=== PATIENT | female | born 1960 | race Caucasian/White ===

== ENCOUNTER 2019-11-14 10:17 | Outpatient (CLI) | payer OTHER, SELFPAY ==
[2019-11-14 12:48] LABS: Vitamin D 25 Total 26.8 ng/ml (30-100)
== END 2019-11-14 10:37 ==
PROVIDERS: PCP Student in an Organized Health Care Education/Training Program; Visit Provider Student in an Organized Health Care Education/Training Program
DX: E55.9 Vitamin D deficiency, unspecified (principal)
CPT/HCPCS: 36415; 82306

== ENCOUNTER 2020-03-30 01:04 | Outpatient (CLI) | payer OTHER, SELFPAY ==
--- NOTE | 2020-03-30 11:30 | DI.MAMMO_ITS ---
EXAM: MG MAMMO SCREENING CLINICAL HISTORY: SCREENING Z12.39 TECHNIQUE: Bilateral full field digital CC and MLO mammographic images were obtained with 3D tomosyn thesis and utilizing computer aided detection (CAD). COMPARISON: Available for comparison. FINDINGS: Masses/Architectural Distortion: None seen. Microcalcifications: No suspicious pleomorphic-type are seen. Skin Thickening/Nipple Retraction: None. IMPRESSION: 1. No significant interval change with no specific features of malignancy noted. 2. Unless there is more urgent need, screening mammography is recommended, as per [employer] guidelines. BI-RADS Category 1 - Negative Breast Density - Category C - Heterogeneously dense The mammogram demonstrates the patient's breast tissue is dense. Dense breast tissue is very common a nd is not abnormal but dense breast tissue can make it harder to find cancer on a mammogram. Also, de nse breast tissue may increase their breast cancer risk. This information about the result of the [facility] mogram report was provided to the patient to raise their awareness. Use this report when you speak wi th the patient about their risks for breast cancer, which includes their family history. At that time , you may recommend for more screening tests (Ultrasound or MRI) as they might be useful based on the ir risk. A negative radiographic report should not delay biopsy if a dominant or clinically suspicious mass is present. Up to ten percent of cancers are not identified on mammography. A negative report may reinforce clinical impression. Adenosis and dense breasts may obscure an underlying neoplasm. False positive reports average 6 to 10%. Patient will receive a letter notifying them of these results.
== END 2020-03-30 01:24 ==
PROVIDERS: PCP Student in an Organized Health Care Education/Training Program; Visit Provider Student in an Organized Health Care Education/Training Program
DX: Z12.31 Encounter for screening mammogram for malignant neoplasm of breast (principal)
CPT/HCPCS: 77063; 77067

== ENCOUNTER 2021-01-15 03:14 | Outpatient (CLI) | payer OTHER, SELFPAY ==
--- NOTE | 2021-01-15 12:54 | DI.CTLCSR_ITS ---
EXAM: CT CHEST LUNG CANCER SCREEN CLINICAL HISTORY: Screening for lung cancer,FORMER SMOKER, Z87.891 TECHNIQUE: CT examination of the chest was performed utilizing low-dose lung cancer screening protoc ol. COMPARISON: No exams were available for comparison FINDINGS: Images obtained through the upper abdomen show unremarkable appearance of visualized portions of the liver and spleen. Visualized portions kidneys, adrenals, pancreas appear intact as well. Prior cho lecystectomy noted. There is no mediastinal or hilar adenopathy. Mediastinal vascular structures appear intact by noncon trast criteria. Coronary artery calcification noted. Tracheobronchial tree appears intact. No pleural effusion or pleural-based mass. The lungs are predominantly clear. There are a couple of tiny left apical intrapulmonary nodules, le ss than 3 millimeters mean diameter. IMPRESSION: Negative LDCT of the chest.Lung RADS Cat 2 - Benign Appearance / Behavior: Nodules with a very low li kelihood of becoming a clinically active cancer due to size or lack of growth Continue annual screening with LDCTin 12 months. RADIATION DOSE DELIVERED: LINK-TO-SR Total DLP 98.37mGy.cm Total DLP RADIATION OPTIMIZATION: All CT scans at this facility use at least one of these dose optimization te chniques: automated exposure control; mA and/or kV adjustment per patient size (includes targeted exa ms where dose is matched to clinical indication); or iterative reconstruction.
== END 2021-01-15 03:34 ==
PROVIDERS: PCP Student in an Organized Health Care Education/Training Program; Visit Provider Student in an Organized Health Care Education/Training Program
DX: Z87.891 Personal history of nicotine dependence (principal); R91.8 Other nonspecific abnormal finding of lung field
CPT/HCPCS: 71271

== ENCOUNTER 2021-03-22 03:57 | Outpatient (CLI) | payer OTHER, SELFPAY ==
[2021-03-22 11:00] LABS: Source Nasal/Nares
[2021-03-22 13:05] LABS: COVID-19 PCR Negative (Negative)
== END 2021-03-22 03:58 | disposition home or self-care (01) ==
LOC: LBO 03:58
PROVIDERS: PCP Student in an Organized Health Care Education/Training Program; Visit Provider Student in an Organized Health Care Education/Training Program
DX: Z20.822 Contact with and (suspected) exposure to COVID-19 (principal); Z01.818 Encounter for other preprocedural examination
CPT/HCPCS: 87635

== ENCOUNTER 2021-03-23 06:14 | Day surgery (SDC) | payer OTHER, SELFPAY ==
[2021-03-23 06:22] VITALS: BP 135/72; PULSE 79; RESP 20; TEMP 36.7; O2SAT 97
--- NOTE | 2021-03-23 06:23 | W.ANESPRE ---
General Info Date of Service Date Performed: 03/23/21 Height: 5 ft 3 in Weight: 98.43 kg Body Mass Index (BMI): 38.4 Surgical Procedure: Operation Date: 03/23/21 07:40 Proposed Procedures Side Surgeon p Wrist ECTR Right Ryan Sellers MD Meds Allergies and Home Medications Allergies Allergy/AdvReac Type Severity Reaction Status Date / Time tioconazole Allergy Severe RASH Verified 03/23/21 06:31 [From Monistat 1 (tioconazole)] morphine AdvReac Elevated bp Verified 03/23/21 06:31 Penicillins AdvReac Yeast Verified 03/23/21 06:31 Infections Home Medication Medication Instructions Recorded aspirin 81 mg tablet,delayed 81 mg PO DAILY 07/04/19 release cyanocobalamin (vitamin B-12) 1,000 mcg PO DAILY 07/04/19 1,000 mcg capsule magnesium 250 mg tablet 500 mg PO DAILY tab 11/14/19 citalopram 10 mg tablet 10 mg PO DAILY #90 tab 07/17/20 lisinopril 10 mg tablet 10 mg PO DAILY #90 tab 07/17/20 pravastatin 40 mg tablet 40 mg PO DAILY #90 tab 07/17/20 ascorbate calcium (vitamin C) 500 500 mg PO DAILY 01/01/21 mg tablet cholecalciferol (vitamin D3) 250 10,000 unit PO .Three times a week 01/01/21 mcg (10,000 unit) capsule cap glucosamine [id number] 1 tab PO .QD tab 01/01/21 500 mg-300 mg-400 mg tablet pyridoxine (vitamin B6) 100 mg 100 mg PO BID #60 tab 01/01/21 tablet Current Visit Medications: Current Medications Generic Name Dose Route Start Last Admin Trade Name Freq PRN Reason Stop Dose Admin Ringer's Solution 1,000 mls @ 80 mls/hr 03/23/21 06:00 IV 04/21/21 23:59 INFUSION ENZO Cefazolin Sodium/Dextrose 2 gm in 50 mls @ 100 mls/hr 03/23/21 06:00 Ancef Duplex IVPB 04/21/21 23:59 PREOP ENZO IV Miscellaneous Supplies 1 each 03/23/21 06:00 Iv Access IV 04/21/21 23:59 DIRECTED ENZO Sodium Chloride 0 ml 03/23/21 06:00 Normal Saline Flush 10 Ml Syr IV 04/21/21 23:59 PRN PRN Sodium Chloride 0 ml 03/23/21 06:00 Normal Saline 10 Ml Vial IJ 04/21/21 23:59 DIRECTED PRN Sterile Water 0 ml 03/23/21 06:00 Water,Injection,Sterile 10 Ml Vial IJ 04/21/21 23:59 DIRECTED PRN PFSH Active Problems Active Problems: Problem Status Onset Code Chronic fatigue R53.82 Numbness and tingling R20.0, R20.2 Bilateral carpal tunnel syndrome G56.03 Vitamin D deficiency E55.9 Vitamin B12 deficiency E53.8 Hyperglycemia R73.9 Mixed hyperlipidemia E78.2 Major depressive disorder F32.9 Essential hypertension I10 Diverticulitis K57.92 Medical History Medical History Bilateral carpal tunnel syndrome EMG/NCS 05/08/17 Chronic fatigue Diverticulitis 1998 Essential hypertension Goal 130/85 07/26/16 Former smoker quit 10/16/07 Hyperglycemia Major depressive disorder Mixed hyperlipidemia Vitamin B12 deficiency Vitamin D deficiency Surgical History Surgical History History of appendectomy History of cholecystectomy (05/14/16) History of hysterectomy (~2001) Hx of endoscopic retrograde cholangiopancreatography (06/22/16) with stent removal and balloon sweep and 05/15/16 Tobacco Smoking/Tobacco Use Status: Former Tobacco Use Tobacco: How many years used: 35 Alcohol Alcohol Intake: former Year quit: 2010 Substance Use Substance use: Never Substance use type: does not use Vital Signs and Lab Results Lab Results Blood Type / Crossmatch: No Data to Display Complete Blood Count: No Data to Display Complete Metabolic Panel: No Data to Display Liver Function Panel: No Data to Display Coagulation Panel: No Data to Display Cardiac Panel: No Data to Display Arterial Blood Gas: No Data to Display Venous Blood Gas: No Data to Display Pancreas Panel: No Data to Display Thyroid Panel: No Data to Display Infectious Disease: Coronavirus (COVID-19)(PCR) Negative (Negative) 03/22/21 08:52 03/22/21 Coronavirus 2019 Source Nasal/nares 03/22/21 08:52 03/22/21 Blood Cultures: No Data to Display Toxicology Panel: No Data to Display Anesthesia Assessment and Plan Anesthesia History Personal History: No History of Anesthesia Complications Family History: No Family History of Anesthesia Complications Exercise Tolerance Exercise Tolerance: Metabolic Equivalents>4 Cardiac & Pulmonary Exam Cardiac Exam: Normal S1/S2 Heart Sounds Pulmonary Exam: Clear Bilateral Breath Sounds Airway Exam Known Difficult Airway: No Mallampati Class: 2 Mouth Opening: Normal (> 3cm) Thyromental Distance: Less than 3 cm Neck Range of Motion: Full ROM Neck Circumference: Thick Teeth Condition: Removable Dentures/Plates Lower and Edentulous ASA Classification ASA Score: ASA 2 Emergency Case?: No NPO Status NPO Status: NPO Clears >2 hours, Solids >8 hours Anesthesia Plan Resuscitation Status: Full Code Anesthesia Technique: General Anesthesia Airway Planned: Natural Airway Monitors Used: Standard Monitors
[2021-03-23] MEDS: Lactated Ringers 1,000 ML 80 ML IV (06:47)
[2021-03-23 06:51] VITALS: BMI 38.4
--- NOTE | 2021-03-23 07:15 | W.PREOPHP ---
Date of service: 03/23/21 Time of Service: 07:15 Assessment and Plan Assessment and plan (1) Bilateral carpal tunnel syndrome: Status: Acute Assessment and plan: Amanda is a 60-year-old with carpal tunnel syndrome of the right side. Per previous clinic discussion she is here today for carpal tunnel surgery. She has had no change in her health. No significant medical issues which would preclude proceeding with surgery today. Once again, I reviewed the risk of carpal tunnel surgery. These include but are not limited to bleeding, infection, pain, stiffness, damage to nerves and vessels, continued numbness, need for repeat procedures, incomplete release. Despite these risk, she elects to proceed. History of Present Illness History of Present Illness Chief Complaint: Right Carpal Tunnel Syndrome Narrative: Amanda is a 60-year-old RHD female who has had symptoms of right carpal tunnel syndrome. She was seen in the office for the diagnosis was established. Treatment options were discussed with the patient and she is here today for carpal tunnel release. She denies any changes to her health. She has had no sick contacts. She denies chest pain or shortness of breath. Review of Systems All systems reviewed & are unremarkable except as noted in HPI and below PFSH Medical History Bilateral carpal tunnel syndrome EMG/NCS 05/08/17 Chronic fatigue Diverticulitis 1998 Essential hypertension Goal 130/85 07/26/16 Former smoker quit 10/16/07 Hyperglycemia Major depressive disorder Mixed hyperlipidemia Vitamin B12 deficiency Vitamin D deficiency Surgical History History of appendectomy History of cholecystectomy (05/14/16) History of hysterectomy (~2001) Hx of endoscopic retrograde cholangiopancreatography (06/22/16) with stent removal and balloon sweep and 05/15/16 Family History Maternal Grandmother Heart disease Paternal Grandmother Heart disease Father Heart disease Hypertension Pancreatic cancer Social History Smoking/Tobacco Use Status: Former Tobacco Use Quit Date: 10/16/07 Tobacco: How many years used: 35 Smoking risk assessment performed?: Yes Alcohol Intake: former Year quit: 2010 Drug use: Never Substance use type: does not use Adopted: No Caregiver/Support person: No Foster care: No Household members: significant other Housing: house Number of Children: 8 number of grandchildren: 12 Communication Needs: None Do you need help understanding health information?: Rarely current occupation: [employer], [employer] Pets and animals: Yes Pets and animals: cat(s) Sexually active: Yes Do you think of yourself as: straight/heterosexual Current gender identity: female What is your relationship status?: living with partner How often do you talk on the phone with friends or family?: twice per week How often do you get together with friends or relatives?: never How often do you attend gnosticist or christian services?: decline to answer Do you belong to any clubs or organized social groups?: no Panel score (0-1 are the most socially isolated patients): 1 What type of physical activity do you participate in: none and other Details: active at work Ayah/Gnosticist: Hindu Special ayah needs: No Seatbelt use: always Helmet use: No Drive intox or ride w/intox 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 Do you feel safe at home: Yes Do you feel safe in your relationship?: Yes Meds Allergies and Home Medications Allergies Allergy/AdvReac Type Severity Reaction Status Date / Time tioconazole Allergy Severe RASH Verified 03/23/21 06:31 [From Monistat 1 (tioconazole)] morphine AdvReac Elevated bp Verified 03/23/21 06:31 Penicillins AdvReac Yeast Verified 03/23/21 06:31 Infections Home Medications Medication Instructions Recorded Confirmed Type aspirin 81 mg tablet,delayed 81 mg PO DAILY 07/04/19 03/23/21 History release cyanocobalamin (vitamin B-12) 1,000 mcg PO DAILY 07/04/19 03/23/21 History 1,000 mcg capsule magnesium 250 mg tablet 500 mg PO DAILY tab 11/14/19 03/23/21 History citalopram 10 mg tablet 10 mg PO DAILY #90 tab 07/17/20 03/23/21 Rx lisinopril 10 mg tablet 10 mg PO DAILY #90 tab 07/17/20 03/23/21 Rx pravastatin 40 mg tablet 40 mg PO DAILY #90 tab 07/17/20 03/23/21 Rx ascorbate calcium (vitamin C) 500 500 mg PO DAILY 01/01/21 03/23/21 History mg tablet cholecalciferol (vitamin D3) 250 10,000 unit PO .Three times a week 01/01/21 03/23/21 History mcg (10,000 unit) capsule cap glucosamine ROq-qqu-uzjcbtkdfli 1 tab PO .QD tab 01/01/21 03/23/21 History 500 mg-300 mg-400 mg tablet pyridoxine (vitamin B6) 100 mg 100 mg PO BID #60 tab 01/01/21 03/23/21 Rx tablet Exam Resp Effort & Inspection: normal respiratory effort Auscultation: clear to auscultation bilaterally Cardio Rate: regular rate Rhythm: regular rhythm Heart Sounds: normal, physiologic split S2 Results Last Vital Signs Temp 36.7 C 03/23/21 06:22 Pulse 79 03/23/21 06:22 Resp 20 03/23/21 06:22 BP 135/72 03/23/21 06:22 Pulse Ox 97 03/23/21 06:22
[2021-03-23] MEDS: ceFAZolin 2 GM/50 ML BAG IVPB (07:27)
[2021-03-23] MEDS: Sodium Bicarbonate 50 MEQ/50 ML VIAL (07:34)
[2021-03-23 07:48] VITALS: BP 96/55; PULSE 91; RESP 18; TEMP 36.3; O2SAT 95
--- NOTE | 2021-03-23 07:53 | W.ANESPOSTOP ---
Postoperative Evaluation Date, Time and Location Date Performed: 03/23/21 Time Performed: 08:43 Patient Location: Day Surgery Unit Vital Signs Most Recent Imported Vital Signs: Most Recent Vital Signs Temp Pulse Resp BP Pulse Ox 36.7 C 79 20 135/72 97 03/23/21 06:22 03/23/21 06:22 03/23/21 06:22 03/23/21 06:22 03/23/21 06:22 Most Recent Manually Entered Vital Signs: Adult Blood Pressure: 115/70 Heart Rate: 65 Respirations: 18 Oxygen Saturation (%): 99 Temperature (C): 36.4 C Pain Score (0-10 Scale): 0 Pain Score Most Recent Pain Score: Most Recent Pain Score Pain Level 7 03/23/21 06:22 Assessment Mental Status: Awake (Alert & Oriented to Patient Baseline) Airway and Respiratory Function: Patent airway with normal (patient baseline) respiratory exam Cardiovascular Function: Hemodynamically Stable Hydration Status: Adequately Hydrated Nausea & Vomiting: No Nausea or Vomiting Pain: Pt. Denies Any Pain Peripheral Nerve Block: Patient did not receive a nerve block
[2021-03-23 08:15] VITALS: BP 115/70; PULSE 65; RESP 18; TEMP 36.4; O2SAT 99
--- NOTE | 2021-03-23 08:27 | PDOC.DSDIS_ITS ---
Discharge Plan Disposition Patient Disposition: HOME Condition: Good Discharge Details Reason For Visit: Right carpal tunnel syndrome Attending Provider: Ryan Sellers Primary Care Provider: Virginia Gates [place] Meds and New Rx's Prescriptions: New acetaminophen 500 mg tablet 500 mg PO Q6H PRN (Reason: pain) Qty: 60 RF: 2 hydrocodone-acetaminophen 5-325 mg tablet 1 tab PO Q6H PRN (Reason: severe pain) Qty: 4 RF: 0 ibuprofen 600 mg tablet 600 mg PO TID PRN (Reason: pain) Qty: 60 RF: 0 Continued magnesium 250 mg tablet 500 mg PO DAILY RF: 0 cholecalciferol (vitamin D3) 250 mcg (10,000 unit) capsule 10,000 unit PO .Three times a week RF: 0 ascorbate calcium (vitamin C) 500 mg tablet 500 mg PO DAILY RF: 0 glucosamine ZVg-nez-yqwtwfxwba 500-300-400 mg tablet 1 tab PO .QD RF: 0 pyridoxine (vitamin B6) 100 mg tablet 100 mg PO BID Qty: 60 RF: 0 aspirin [Adult Low Dose Aspirin] 81 mg tablet,delayed release (DR/EC) 81 mg PO DAILY RF: 0 cyanocobalamin (vitamin B-12) 1,000 mcg capsule 1,000 mcg PO DAILY RF: 0 citalopram 10 mg tablet 10 mg PO DAILY Qty: 90 RF: 3 lisinopril 10 mg tablet 10 mg PO DAILY Qty: 90 RF: 3 pravastatin 40 mg tablet 40 mg PO DAILY Qty: 90 RF: 3 Discharge Instructions Stand Alone Forms: Anesthesia Discharge Inst., Verito Connor Tunnel Release Activity:: Elevate Remove Dressings/Wound Care:: 72 hours Shower/Bathe:: 72 hours Diet:: As Tolerated Discharge Orders Discharge Orders: Discharge Order (Routine); Ordered 03/23/21 Ordered By: Ryan Sellers DS: Diagnosis Discharge Diagnosis (1) Bilateral carpal tunnel syndrome: Status: Acute
[2021-03-23 08:43] VITALS: BP 115/70; PULSE 65; RESP 18; TEMPC 36.4; O2SAT 99
--- NOTE | 2021-03-23 12:25 | ROE_ITS ---
Date of service: 03/23/21 Time of Service: 07:45 Operative Note Operative Note DATE OF PROCEDURE: 03/23/21 PRE-OP DIAGNOSIS: Right Carpal Tunnel Syndrome POST-OP DIAGNOSIS: same PROCEDURE: Right Endoscopic Carpal Tunnel Release SURGEON: Ryan Sellers Refer to Anesthesia Record ESTIMATED BLOOD LOSS: 0 PATHOLOGY: none sent TOURNIQUET TIME: 6 COMPLICATIONS: None Patient was transported to: same day Patient's condition: stable Indications: I have seen Amanda in clinic for symptoms of carpal tunnel syndrome. The numbness, tingling, and pain limited function. Clinical exam findings with nerve conduction tests confirmed the diagnosis of carpal tunnel syndrome. Nonoperative measures such as bracing, time, activity modifications had been tr ied but disability and pain persisted. I discussed carpal tunnel release with the patient. I reviewed the risks of the procedure to include, but not limited to, bleeding, infection, pain, stiffness, incomplete release, damage to nerves or vessels, persistent numbness, recurrence. Despite these risks, the patient elected to proceed. Findings: There was tightened carpal tunnel. This was dilated and released successfully with the endoscopic with increased space within the tunnel. The antebrachial fascia was released proximally freeing the median nerve at the wrist. Procedure Description: Amanda was greeted in the preoperative holding area where the correct side was identified and marked. The consent was reviewed with the patient and signed. The history and physical was updated. All questions were answered. She was taken back to the operating room. The patient was placed into the supine position on the operating room table with the right arm on an arm board. A nonsterile tourniquet was placed high onto the arm. All bony prominences were well padded. Prophylactic antibiotics in the form of Cefazolin were administered. The right arm was then prepped with Chloraprep and draped in a standard fashion with stockinette and extremity drape. A timeout to confirm correct identity, side and site, procedure, allergies, anesthesia, and medical concerns was performed. The surgical site was marked in the volar wrist creases in line with the radial border of the fourth ray. This area was anesthetized with approximately 6cc of 1% Lidocaine. The limb was then exsanguinated with an Esmarch. The skin was incised with a 15 blade, approximately 1cm. The skin only was cut and the han per tissue was dissected bluntly with a tenotomy scissor, avoiding passing nerve and venous structures. The fascia was penetrated and opened bluntly. A two- prong skin hook was placed under this proximal fascial edge. A series of hamate finders were used to identify and dilate the carpal tunnel. Synovial elevator was used to free synovial attachments to the underside of the transverse carpal ligament. My thumb was kept in the palm to ganesh the distal extent of the carpal tunnel and correctly position the hand. The [employer]aire endoscope was inserted without difficulty and without resistance. Excellent visualization showed horizontally running fibers of the transverse carpal ligament (TCL). The distal extent of the TCL was visualized and the end of the scope palpated with the thumb. The blade was elevated and withdrawn from distal to proximal. The TCL was split into two flaps. The endoscope was reinserted to confirm complete release and any remnant ligament was incised. The scope was withdrawn and the proximal aspect of the carpal tunnel was grossly inspected and appeared release with the median nerve visible. The antebrachial fascia at the level of the wrist was then freed from the overlying skin and then the underlying median nerve with blunt dissection. This was transected longitudinally for about 3cm proximal to the wrist incision. The wound was then irrigated with easy flow of irrigant distally and proximally. The incision was closed with a single 4-0 Nylon suture. The wound was dressed with Xeroform, Gauze, Kerlix and Lit. The tourniquet was deflated with the initial dressing and held with some pressure. Blood flow returned easily to all digits with capillary refill less than 2 seconds. The patient tolerated the procedure well and was returned to the Same Day Surgery area in a stable condition suffering no known complication.
== END 2021-03-23 08:52 | disposition home or self-care (01) ==
PROVIDERS: PCP Student in an Organized Health Care Education/Training Program; Visit Provider Student in an Organized Health Care Education/Training Program
PROC: 01N54ZZ Release Median Nerve, Percutaneous Endoscopic Approach (ICD-10-PCS; CPT 29848; principal; 2021-03-23 07:30)
DX: G56.03 Carpal tunnel syndrome, bilateral upper limbs (principal); I10 Essential (primary) hypertension; E78.2 Mixed hyperlipidemia; E55.9 Vitamin D deficiency, unspecified; R73.9 Hyperglycemia, unspecified
CPT/HCPCS: 29848; J0690; J2001

== ENCOUNTER 2021-10-13 02:34 | Outpatient (CLI) | payer OTHER, SELFPAY ==
[2021-10-13 16:36] LABS: HCT 41.6 % (36.0-46.0); HGB 13.5 g/dL (11.2-15.7); MCH 28.7 pg (27.0-33.0); MCHC 32.5 % (32.0-36.0); MCV 88.3 fL (80-95); MPV 10.6 fL (8.0-11.0); Platelet Count 290 10^3/uL (130-400); RBC 4.71 10^6/uL (3.93-5.22); RDW 14.6 % (11.7-14.6); RDW-SD 47.2 fL; WBC 9.23 10^3/uL (4.4-10.8)
[2021-10-13 17:28] LABS: ALT 37 U/L (14-59); AST 21 U/L (15-37); Albumin 4.2 g/dL (3.4-5.0); Alkaline Phosphatase 57 U/L (46-116); Anion Gap 8.7 mmol/L (3-11); BUN 18 mg/dL (7-18); Bilirubin, Total 0.2 mg/dL (0.2-1.0); CO2 29.3 mmol/L (21.0-32.0); CREATININE 1.2 mg/dL (0.55-1.02); Calcium 9.4 mg/dL (8.5-10.1); Calculated LDL 137 mg/dL (<100); Chloride 104 mmol/L (98-107); Cholesterol 221 mg/dL (<200); Estimated GFR 45.37 (mL/min/1.73m2); Glucose 89 mg/dL (74-106); HDL Cholesterol 50 mg/dL (40-60); Potassium 3.9 mmol/L (3.5-5.1); Sodium 142 mmol/L (136-145); TSH (W/Ref FT4) 1.08 uIU/mL (0.36-3.74); Total Protein 7.5 g/dL (6.4-8.2); Triglyceride 173 mg/dL (<150)
[2021-10-14 00:21] LABS: Vitamin D 25 Total 40.5 ng/mL (30-100)
== END 2021-10-13 02:35 | disposition home or self-care (01) ==
LOC: LBO 02:34
PROVIDERS: PCP Student in an Organized Health Care Education/Training Program; Visit Provider Student in an Organized Health Care Education/Training Program
DX: E55.9 Vitamin D deficiency, unspecified (principal); F32.9 Major depressive disorder, single episode, unspecified; R53.82 Chronic fatigue, unspecified; Z13.220 Encounter for screening for lipoid disorders; E53.8 Deficiency of other specified B group vitamins; R20.0 Anesthesia of skin; R20.2 Paresthesia of skin; Z86.2 Personal history of diseases of the blood and blood-forming organs and certain disorders involving the immune mechanism; E46 Unspecified protein-calorie malnutrition; I10 Essential (primary) hypertension
CPT/HCPCS: 36415; 80053; 80061; 82306; 85027; 84443

== ENCOUNTER → 2022-04-26 01:38 | Outpatient (CLI) | payer OTHER, SELFPAY ==
--- NOTE | 2022-04-26 07:45 | DI.RAD_ITS ---
Exam(s) XR SHOULDER RT COMPLETE 2+V EXAM: XR SHOULDER RT COMPLETE 2+V CLINICAL HISTORY: evaluate shoulder joint area space,INJURY,? RT ROTATOR CUFF TEAR, PAIN,. TECHNIQUE: 2D digital imaging was performed of the right shoulder. Five images were obtained. AP, Grashey, Y-view and axillary views were obtained. COMPARISON: No exams were available for comparison FINDINGS: BONES: No acute fracture is present. No bony destructive lesion is seen. JOINTS: No dislocation present. Mild degenerative changes are seen at the acromioclavicular joint. SOFT TISSUE: Normal. IMPRESSION: Mild degenerative changes of the right AC joint. DATA REPOSITORY: RADIATION DOSE DELIVERED:
== END ==
PROVIDERS: PCP Student in an Organized Health Care Education/Training Program; Visit Provider Student in an Organized Health Care Education/Training Program
DX: S46.001A Unspecified injury of muscle(s) and tendon(s) of the rotator cuff of right shoulder, initial encounter; X58.XXXA Exposure to other specified factors, initial encounter
CPT/HCPCS: 73030

== ENCOUNTER 2022-11-22 17:15 | Outpatient (CLI) | payer OTHER, SELFPAY ==
[2022-11-22 15:54] LABS: Anion Gap 8.4 mmol/L (3-11); BUN 21 mg/dL (7-18); CO2 28.6 mmol/L (21.0-32.0); CREATININE 1.2 mg/dL (0.55-1.02); Chloride 104 mmol/L (98-107); Estimated GFR 50.55 (mL/min/1.73m2); Glucose 95 mg/dL (74-106); Potassium 3.9 mmol/L (3.5-5.1); Sodium 141 mmol/L (136-145)
== END 2022-11-22 17:16 | disposition home or self-care (01) ==
LOC: LBO 17:15
PROVIDERS: PCP Student in an Organized Health Care Education/Training Program; Visit Provider Student in an Organized Health Care Education/Training Program
DX: I10 Essential (primary) hypertension (principal); R42 Dizziness and giddiness; E86.0 Dehydration; E87.8 Other disorders of electrolyte and fluid balance, not elsewhere classified
CPT/HCPCS: 80048; 83735

== ENCOUNTER 2023-03-21 01:43 | Outpatient (CLI) | payer OTHER, SELFPAY ==
--- NOTE | 2023-03-21 07:30 | DI.CTLCSR_ITS ---
Exam(s) CT CHEST LUNG CANCER SCREEN EXAM: CT CHEST LUNG CANCER SCREEN CLINICAL HISTORY: Screening for lung cancer,former smoker, z87.891 TECHNIQUE: Imaging Protocol: Axial computed tomography images with coronal and sagittal reformatted images were created and reviewed COMPARISON: CT CT CHEST LUNG CANCER SCREEN from 01/15/2021 FINDINGS: Tracheobronchial tree: Patent where visualized. Pulmonary parenchyma: No consolidation or dominant measurable mass. No architectural distortion. Lung Nodules: There again seen a few 1-2 mm nodules in the medial aspect of the left apical lung. No new pulmonary nodules are seen. Mediastinum and Rosi: No dominant adenopathy or fluid collection. The esophagus is unremarkable. Thyroid gland: Unremarkable. Lymph nodes: Unremarkable. Pleura: No effusion or pneumothorax. Heart: The heart is not dilated. Moderate coronary artery calcification. No pericardial effusion. Aorta: Thoracic aorta non-dilated.Atherosclerosis. Upper abdomen: No acute abnormality. Soft Tissues: Unremarkable. Bones: Within normal limits. IMPRESSION: Stable pulmonary nodules. Lung RADS Cat 2 - Benign Appearance / Behavior: Nodules with a very low likelihood of becoming a clin ically active cancer due to size or lack of growth Lung-RADS 1.0 CATEGORIES: Category 0 - Prior chest CT exam(s) being located for comparison. Category 1 - Annual screening in 12 months. No nodules or definitely benign nodules. Category 2 - Annual screening in 12 months. Benign appearance. Nodules with low likelihood of becomin g active cancer. Category 3 - 6-month follow-up. Probably benign. Short-term follow-up suggested. Nodules with low lik elihood of becoming active cancer. Category 4A - 3-month follow-up and CT/PET if >8 mm in size. Suspicious finding. Findings which requi re additional testing. Category 4B - Findings which require additional testing and tissue sampling. Suspicious finding. Category 4X - Category 3 or 4 nodules with additional features or imaging findings that increases the suspicion of malignancy. Modifier S- Potentially clinically significant finding. (Non lung cancer) RADIATION DOSE DELIVERED: 91.39mGy.cm Total DLP 91.39mGy.cmTotal DLP DATA REPOSITORY: All CT scans at this facility are submitted to the National Radiology Data Registry (NRDR) Dose Index Registry (DIR) with the [employer] (A[employer]). RADIATION OPTIMIZATION: All CT scans at this facility use at least one of these dose optimization te chniques: automated exposure control; mA and/or kV adjustment per patient size (includes targeted exa ms where dose is matched to clinical indication); or iterative reconstruction.
--- NOTE | 2023-03-21 07:30 | DI.MAMMO_ITS ---
Exam(s) MAMMO SCREENING EXAM: MAMMO SCREENING CLINICAL HISTORY: screening, z12.39 TECHNIQUE: Bilateral full field digital CC and MLO mammographic images were obtained with 3D tomosyn thesis and utilizing computer aided detection (CAD). COMPARISON: Available for comparison. FINDINGS: Masses/Architectural Distortion: None seen. Microcalcifications: No suspicious pleomorphic-type are seen. Skin Thickening/Nipple Retraction: None. IMPRESSION: 1. No significant interval change with no specific features of malignancy noted. 2. Unless there is more urgent need, screening mammography is recommended, as per [employer] guidelines. BI-RADS Category 1 - Negative Breast Density - Category B - Scattered areas of fibroglandular density Breast density category C or D implies that the patient has dense breast tissue. Dense breast tissue is very common and is not abnormal but dense breast tissue can make it harder to find cancer on a ma mmogram. Also, dense breast tissue may increase their breast cancer risk. This information about the result of the mammogram report was provided to the patient to raise their awareness. Use this report when you speak with the patient about their risks for breast cancer, which includes their family hist ory. At that time, you may recommend for more screening tests (Ultrasound or MRI) as they might be us eful based on their risk. A negative radiographic report should not delay biopsy if a dominant or clinically suspicious mass is present. Up to ten percent of cancers are not identified on mammography. A negative report may reinforce clinical impression. Adenosis and dense breasts may obscure an underlying neoplasm. False positive reports average 6 to 10%. Patient will receive a letter notifying them of these results.
== END 2023-03-21 02:03 ==
LOC: DI 01:44
PROVIDERS: PCP Student in an Organized Health Care Education/Training Program; Visit Provider Student in an Organized Health Care Education/Training Program
DX: Z87.891 Personal history of nicotine dependence (principal); Z12.31 Encounter for screening mammogram for malignant neoplasm of breast; Z12.2 Encounter for screening for malignant neoplasm of respiratory organs
CPT/HCPCS: 71271; 77063; 77067

== ENCOUNTER 2023-10-10 03:35 | Outpatient (CLI) | payer MEDICARE, SELFPAY ==
[2023-10-10 08:17] LABS: HGB 13.8 g/dL (11.2-15.7)
[2023-10-10 08:59] LABS: Vitamin D 25 Total 42.7 ng/mL (30-100)
[2023-10-10 09:02] LABS: Anion Gap 4.9 mmol/L (3-11); BUN 19 mg/dL (7-18); CO2 30.1 mmol/L (21.0-32.0); CREATININE 1.2 mg/dL (0.55-1.02); Calcium 8.9 mg/dL (8.5-10.1); Calculated LDL 117 mg/dL (<100); Chloride 104 mmol/L (98-107); Cholesterol 195 mg/dL (<200); Estimated GFR 50.23 (mL/min/1.73m2); Glucose 103 mg/dL (74-106); HDL Cholesterol 50 mg/dL (40-60); Potassium 4.4 mmol/L (3.5-5.1); Sodium 139 mmol/L (136-145); Triglyceride 140 mg/dL (<150); Vitamin B12 787 pg/mL (193-986)
== END 2023-10-10 03:36 | disposition home or self-care (01) ==
LOC: LBO 03:35
PROVIDERS: PCP Student in an Organized Health Care Education/Training Program; Referring Provider Student in an Organized Health Care Education/Training Program; Visit Provider Student in an Organized Health Care Education/Training Program
DX: E53.8 Deficiency of other specified B group vitamins (principal); I10 Essential (primary) hypertension; R20.2 Paresthesia of skin; R42 Dizziness and giddiness; R53.82 Chronic fatigue, unspecified; F32.9 Major depressive disorder, single episode, unspecified
CPT/HCPCS: 36415; 80048; 80061; 82306; 82607; 85018

== ENCOUNTER 2024-03-08 09:37 | Emergency (ER) | payer MEDICARE, SELFPAY ==
[2024-03-08 09:46] VITALS: BP 156/62; PULSE 77; RESP 18; O2SAT 98
--- NOTE | 2024-03-08 10:00 | DI.CT_ITS ---
Exam(s) CT ABDOMEN PELVIS WO EXAM: CT ABDOMEN PELVIS WO CLINICAL HISTORY: lower abdominal pain, eval for tics/stone. TECHNIQUE: Imaging Protocol: Axial computed tomography images with coronal and sagittal reformatted images were created and reviewed. Oral: / no COMPARISON: No exams were available for comparison FINDINGS: Lung Bases: No acute findings. Liver: Enlarged, qwqi-iy-fodtvsuz hepatic steatosis. No suspicious mass. Gallbladder and biliary tract: Status post cholecystectomy. No radiodense calculus or biliary dila tion. Pancreas: Normal density, no abnormal calcifications or inflammatory process. Spleen: Normal. Kidneys: Normal size, contour and axis. No radiodense stones or obstructive uropathy. No suspicious m asses seen. Simple cyst lower pole right kidney. Adrenal glands: No masses seen. Lymph nodes: Within normal limits. Vasculature: Abdominal aorta non-dilated. Atherosclerotic changes. Soft tissues: Small fatty containing umbilical hernia. Bladder: No wall thickening. No mass or calculi. Bowel: Prominent diverticulosis involving descending and sigmoid colon. Abnormal stranding in the fa t adjacent to the lower descending colon consistent with diverticulitis. There is also stranding in the fat adjacent to the mid sigmoid. No obstruction. Peritoneal cavity: No ascites or focal collection. No free air. Reproductive organs: Status post hysterectomy. Bones: Unremarkable for age. IMPRESSION: Prominent diverticulosis of the descending and sigmoid colon. Mild diverticulitis at the lower desce nding colon as well as mid sigmoid. Findings called to Dr. Senior of the emergency department. RADIATION DOSE DELIVERED: 1,088.36mGy.cm Total DLP DATA REPOSITORY: All CT scans at this facility are submitted to the National Radiology Data Registry (NRDR) Dose Index Registry (DIR) with the [employer] (ACR). RADIATION OPTIMIZATION: All CT scans at this facility use at least one of these dose optimization te chniques: automated exposure control; mA and/or kV adjustment per patient size (includes targeted exa ms where dose is matched to clinical indication); or iterative reconstruction.
--- NOTE | 2024-03-08 10:06 | W.ED.GENAD ---
Discharge Plan Disposition Patient Disposition: Home Condition: Good Discharge Details Clinical Impression: Diverticulitis large intestine Primary Care Provider: Virginia Gates ED Provider: Myles Senior Home Meds and New Rx's Prescriptions: New amoxicillin-pot clavulanate 875-125 mg tablet 1 tab PO BID Qty: 20 0RF Continued magnesium 250 mg tablet 500 mg PO DAILY cholecalciferol (vitamin D3) 250 mcg (10,000 unit) capsule 10,000 unit PO .Three times a week ascorbate calcium (vitamin C) 500 mg tablet 500 mg PO DAILY glucosamine OMn-vpo-lwsuvesafo 500-300-400 mg tablet 1 tab PO .QD Rx Instructions: 1500mg glucosamine (3tabs) pyridoxine (vitamin B6) 100 mg tablet 100 mg PO BID Qty: 60 0RF Rx Instructions: Trial omega 7-lnx-uyp-fish oil [Fish Oil] 1,000 mg (120 mg-180 mg) capsule 1 cap PO DAILY lisinopril 10 mg tablet See Rx Instructions .ROUTE .COMPLEX Qty: 90 3RF Dose Instruction: TAKE 1 TABLET BY MOUTH DAILY Rx Instructions: TAKE 1 TABLET BY MOUTH DAILY citalopram 20 mg tablet 20 mg PO DAILY Qty: 90 3RF Rx Instructions: Please note NEW DOSE coconut oil 1,000 mg capsule 1,000 mg PO DAILY Qty: 100 1RF Rx Instructions: Taking OTC, starting mid-May 2023 aspirin [Adult Low Dose Aspirin] 81 mg tablet,delayed release (DR/EC) 81 mg PO DAILY cyanocobalamin (vitamin B-12) 1,000 mcg capsule 1,000 mcg PO DAILY pravastatin 40 mg tablet See Rx Instructions .ROUTE .COMPLEX Qty: 90 3RF Dose Instruction: TAKE 1 TABLET BY MOUTH DAILY Rx Instructions: TAKE 1 TABLET BY MOUTH DAILY ibuprofen 600 mg tablet 600 mg PO TID PRN (Reason: pain) Qty: 60 0RF Discharge Instructions Instructions: Diverticulitis (ED) Additional Instructions: At this time you have evidence of mild diverticulitis. Please take the antibiotic as directed. Is been sent to your pharmacy on file. Please take Tylenol and Motrin as needed for pain. For breakthrough pain please use the pills that were given to you here for only breakthrough pain as needed. If you notice any worsening of your symptoms, or any new symptoms such as vomiting, diarrhea, fever, chills, shortness of breath, chest pain, numbness, weakness, or fainting , please return immediately to the emergency department for reevaluation. Please follow up with your primary care provider as soon as possible for reassessment and reevaluation. As always, it was a pleasure participating in your medical care today. Stand Alone Forms: Work Release Referrals: Virginia Gates DO [Primary Care Provider] - HPI General Date/Time Provider Initiated Documentation: 03/08/24 10:03. HPI Narrative: This is a pleasant 63-year-old female with a past medical history of hypertension, high cholesterol, previous cholecystectomy, appendectomy, hysterectomy, who presents today for lower abdominal pain. Patient states that it has been present for the last 5 days. She has had nausea but no vomiting. Pain is described as sharp and achy. It started in the left lower quadrant but has now diffused itself throughout the entire lower abdomen. She does admit to dysuria but denies any blood. She states that it feels similar to her previous episodes of diverticulitis. She does admit to being constipated earlier, she did take a laxative 2 days ago which gave some stool production, but she now feels constipated again. She denies any fever or chills. She denies any headache or neck pain. No other complaints at this time. No dark or melanotic stools. No bloody stools. No other complaints at this time. Related Data Home Medications Medication Instructions Recorded Confirmed aspirin 81 mg tablet,delayed 81 mg PO DAILY 07/04/19 03/08/24 release (Adult Low Dose Aspirin) cyanocobalamin (vitamin B-12) 1,000 mcg PO DAILY 07/04/19 03/08/24 1,000 mcg capsule magnesium 250 mg tablet 500 mg PO DAILY 11/14/19 03/08/24 ascorbate calcium (vitamin C) 500 500 mg PO DAILY 01/01/21 03/08/24 mg tablet cholecalciferol (vitamin D3) 250 10,000 unit PO .Three times a week 01/01/21 03/08/24 mcg (10,000 unit) capsule glucosamine GYo-loq-mvrzzemsmyk 1 tab PO .QD 01/01/21 03/08/24 500 mg-300 mg-400 mg tablet pyridoxine (vitamin B6) 100 mg 100 mg PO BID #60 tabs 01/01/21 03/08/24 tablet ibuprofen 600 mg tablet 600 mg PO TID PRN pain #60 tabs 03/23/21 03/08/24 omega 3-kyh-xwi-fish oil 1,000 mg 1 cap PO DAILY 05/23/22 03/08/24 (120 mg-180 mg) capsule (Fish Oil) citalopram 20 mg tablet 20 mg PO DAILY #90 tabs 05/23/23 03/08/24 coconut oil 1,000 mg capsule 1,000 mg PO DAILY #100 caps 05/23/23 03/08/24 lisinopril 10 mg tablet See Rx Instructions .Route 05/23/23 03/08/24 .COMPLEX #90 tabs pravastatin 40 mg tablet See Rx Instructions .Route 02/02/24 03/08/24 .COMPLEX #90 tabs amoxicillin 875 mg-potassium 1 tab PO BID #20 tabs 03/08/24 clavulanate 125 mg tablet Previous Rx's Medication Instructions Recorded pyridoxine (vitamin B6) 100 mg 100 mg PO BID #60 tabs 01/01/21 tablet ibuprofen 600 mg tablet 600 mg PO TID PRN pain #60 tabs 03/23/21 citalopram 20 mg tablet 20 mg PO DAILY #90 tabs 05/23/23 coconut oil 1,000 mg capsule 1,000 mg PO DAILY #100 caps 05/23/23 lisinopril 10 mg tablet See Rx Instructions .Route 05/23/23 .COMPLEX #90 tabs pravastatin 40 mg tablet See Rx Instructions .Route 02/02/24 .COMPLEX #90 tabs amoxicillin 875 mg-potassium 1 tab PO BID #20 tabs 03/08/24 clavulanate 125 mg tablet Allergies Allergy/AdvReac Type Severity Reaction Status Date / Time tioconazole Allergy Severe RASH Verified 03/08/24 09:49 [From Monistat 1 (tioconazole)] morphine AdvReac Elevated bp Verified 03/08/24 09:49 Penicillins AdvReac Yeast Verified 03/08/24 09:49 Infections General Stated Complaint: Abd Prob PANKAJ: 3 Review of Systems All systems reviewed & are unremarkable except as noted in HPI and below Exam Narrative Exam Narrative: 1.Const: Well-nourished, Well-developed, appearing stated age 2.Eyes: PERRL, no conjunctival injection, and symmetrical lids. 3.ENT: Atraumatic external nose and ears. Moist MM. Neck: Symmetric, trachea midline, No thyromegaly. 4.CVS: +S1/S2, No murmurs or gallops. Peripheral pulses 2+ and equal in all extremities. Brisk capillary refill in all extremities. 5.RESP: Unlabored respiratory effort. Clear to auscultation bilaterally. No wheezes rales or rhonchi 6.GI: Soft, nondistended. Tenderness in the left lower, lower mid, and right lower quadrants. No pain in the right upper or left upper quadrants. Negative Neil sign. Mild left-sided CVA tenderness. Positive heel strike test on the left. 7.MSK: Normocephalic/Atraumatic, Extremities w/o deformity or ttp No cyanosis or clubbing, Normal movement of all extremities 8.Skin: Warm, Dry. No rashes or lesions. 9.Neuro: sterile processing technologist II-XII grossly intact. Sensation grossly intact, no focal neurologic deficits. 10.Psych: (AAO) x3. Appropriate mood and affect Course Vital Signs Vital signs: Vital Signs Pulse 77 03/08/24 09:46 Respiratory Rate 18 03/08/24 09:46 Blood Pressure 156/62 H 03/08/24 09:46 Pulse Oximetry 98 03/08/24 09:46 Temperature Source Temporal Artery Scan 03/08/24 09:46 Pulse 77 03/08/24 09:46 Respiratory Rate 18 03/08/24 09:46 Respiratory Effort Normal, Non-Labored 03/08/24 09:50 Blood Pressure 156/62 H 03/08/24 09:46 Pulse Oximetry 98 03/08/24 09:46 Pain Level 8 03/08/24 09:46 Medical Decision Making This is a pleasant 63-year-old female with a past medical history of hypertension, high cholesterol, previous cholecystectomy, appendectomy, hysterectomy, who presents today for lower abdominal pain. Patient states that it has been present for the last 5 days. She has had nausea but no vomiting. Pain is described as sharp and achy. It started in the left lower quadrant but has now diffused itself throughout the entire lower abdomen. She does admit to dysuria but denies any blood. She states that it feels similar to her previous episodes of diverticulitis. She does admit to being constipated earlier, she did take a laxative 2 days ago which gave some stool production, but she now feels constipated again. She denies any fever or chills. She denies any headache or neck pain. No other complaints at this time. No dark or melanotic stools. No bloody stools. No other complaints at this time. Exam demonstrates left mid and right lower abdominal tenderness. Mild left CVA tenderness, left heel strike test positive. Concern for diverticulitis, pyelonephritis, kidney stone. Will get a CT scan, patient has declined narcotics. Will give Toradol and Ofirmev. Will rehydrate, monitor closely and reassess. 11:[address] scan has returned, prominent diverticulosis is present, but only mild diverticulitis is noted though. Laboratory workup demonstrates stable vital signs, minimal white count of 13, no bandemia. Minimal left shift. Electrolytes stable, lactate normal. Urinalysis negative for evidence of infection. Symptoms are consistent with mild diverticulitis. Will give a dose of Unasyn here, prescription for Augmentin for home. Patient has elected for a few pills of narcotic pain medication at home for only breakthrough pain. Will give a few oxycodones for home use. Will recommend continued NSAID therapy. Patient otherwise stable for discharge. Exam demonstrates nonsurgical abdomen on reassessment. No evidence of perforation per radiology on CT scan. No evidence of sepsis. Patient stable for discharge. Discussed red flags which to return. I have extensively reviewed the treatment plan and discharge instructions with the patient. I have addressed all patient concerns at this time. The patient was made aware of what symptoms to monitor for that would warrant a return to the emergency department. Discussed the plan with the patient, they demonstrate verbal understanding and agreement with our assessment and plan at this time. The documentation in this chart was dictated using [employer] dictation software. Please excuse any dictation errors. FINDINGS: Lung Bases: No acute findings. Liver: Enlarged, ucvy-wl-vlauudwa hepatic steatosis. No suspicious mass. Gallbladder and biliary tract: Status post cholecystectomy. No radiodense calculus or biliary dilation. Pancreas: Normal density, no abnormal calcifications or inflammatory process. Spleen: Normal. Kidneys: Normal size, contour and axis. No radiodense stones or obstructive uropathy. No suspicious masses seen. Simple cyst lower pole right kidney. Adrenal glands: No masses seen. Lymph nodes: Within normal limits. Vasculature: Abdominal aorta non-dilated. Atherosclerotic changes. Soft tissues: Small fatty containing umbilical hernia. Bladder: No wall thickening. No mass or calculi. Bowel: Prominent diverticulosis involving descending and sigmoid colon. Abnormal stranding in the fat adjacent to the lower descending colon consistent with diverticulitis. There is also stranding in the fat adjacent to the mid sigmoid. No obstruction. Peritoneal cavity: No ascites or focal collection. No free air. Reproductive organs: Status post hysterectomy. Bones: Unremarkable for age. IMPRESSION: Prominent diverticulosis of the descending and sigmoid colon. Mild diverticulitis at the lower descending colon as well as mid sigmoid. Findings called to Dr. Senior of the emergency department. Quality:SDOH Health Related Social Needs: No Data to Display PFSH All Active Problems (Updated 03/08/24 @ 11:33 by Myles Senior DO) Diverticulitis large intestine (Acute) Lung nodules (Acute) a few 1-2mm nodules, left apical lung, stable, Cat 2 per 03/2023 CT Lung Screen.. Vertigo (Acute) Negative per PT.. Possible migraine vertigo? Bursitis of right shoulder (Acute) Right rotator cuff tendonitis (Acute) Serous otitis media (Acute) Conductive hearing loss in left ear (Acute) Trigger finger, right middle finger (Acute) Post injection; Manages well. Surgery PRN. Chronic fatigue (Acute) Numbness and tingling (Acute) Rt distal thigh; Hx carpal tunnel (R>L) Vitamin D deficiency (Acute) Vitamin B12 deficiency (Acute) Hyperglycemia (Acute) Mixed hyperlipidemia (Acute) Major depressive disorder (Chronic) Essential hypertension (Acute) Actually low lately, 02/21/23; Goal 130/85 07/26/16 Medical History Former smoker quit 10/16/07, after 34 yrs, @ 3 PPD Bilateral carpal tunnel syndrome EMG/NCS 05/08/17 Diverticulitis 1998 Surgical History S/P endoscopic carpal tunnel release RIGHT: 03/23/2021 Hx of endoscopic retrograde cholangiopancreatography (06/22/16) with stent removal and balloon sweep and 05/15/16 History of appendectomy History of cholecystectomy (05/14/16) History of hysterectomy (~2001) Family History Maternal Grandmother Heart disease Paternal Grandmother Heart disease Father Heart disease Hypertension Pancreatic cancer Social History Smoking/Tobacco Use Status: Former Tobacco Use Quit Date: 10/16/07 Tobacco: How many years used: 35 Smoking risk assessment performed?: Yes Alcohol Intake: former Year quit: 2010 Drug use: Never Substance use type: does not use Adopted: No Caregiver/Support person: No Foster care: No Household members: significant other Housing: house Number of Children: 6 number of grandchildren: 14 Communication Needs: None Education Level: college Details: Associate's degree Do you need help understanding health information?: Rarely current occupation: Recruiting Team Lead, [employer] Pets and animals: Yes Pets and animals: cat(s) Sexually active: Yes Do you think of yourself as: straight/heterosexual Current gender identity: female What is your relationship status?: living with partner How often do you talk on the phone with friends or family?: twice per week How often do you get together with friends or relatives?: never How often do you attend religious or religion services?: decline to answer Do you belong to any clubs or organized social groups?: no Panel score (0-1 are the most socially isolated patients): 1 What type of physical activity do you participate in: none and other Details: active at work Ayah/Episcopal: Denominational Special ayah needs: No Seatbelt use: always Helmet use: No Drive intox or ride w/intox cab driver: No Do you feel safe at home: Yes Do you feel safe in your relationship?: Yes
[2024-03-08 10:09] LABS: Abs Immature Grans 0.06 10^3/uL (0.0-0.06); Absolute Basophil Count 0.04 10^3/uL (0.0-0.2); Absolute Eosinophil Count 0.05 10^3/uL (0.0-0.7); Absolute Lymphocyte Count 2.87 10^3/uL (1.2-3.4); Absolute Monocyte Count 1.03 10^3/uL (0.1-0.8); Basophils % 0.3 %; Eosinophils % 0.4 %; HCT 41.9 % (36.0-46.0); HGB 13.9 g/dL (11.2-15.7); Immature Grans % 0.5 %; Lactate 1.3 mmol/L (0.6-1.4); Lymphocytes % 22.1 %; MCH 29.1 pg (27.0-33.0); MCHC 33.2 % (32.0-36.0); MCV 88 fL (80-95); MPV 10.4 fL (8.0-11.0); Monocytes % 7.9 %; Neutrophils % 68.8 %; Platelet Count 296 10^3/uL (130-400); RBC 4.78 10^6/uL (3.93-5.22); RDW 14.6 % (11.7-14.6); RDW-SD 46.8 fL
[2024-03-08 10:10] LABS: Absolute Neutrophil Count 8.94 10^3/uL (1.2-6.7)
[2024-03-08] MEDS: ACETAMINOPHEN 1,000 MG/100 ML BTL 400 MG IVPB (10:16)
[2024-03-08] MEDS: Ketorolac 30 MG/ML VIAL IVP (10:17)
[2024-03-08] MEDS: Normal Saline 1,000 ML 1000 ML IV (10:17)
[2024-03-08 10:25] VITALS: BP 156/62; PULSE 77; RESP 18; O2SAT 98
[2024-03-08 10:25] LABS: ALT 31 U/L (14-59); AST 19 U/L (15-37); Albumin 3.8 g/dL (3.4-5.0); Alkaline Phosphatase 62 U/L (46-116); BUN 18 mg/dL (7-18); Bilirubin, Total 0.4 mg/dL (0.2-1.0); CREATININE 1.2 mg/dL (0.55-1.02); Calcium 9.5 mg/dL (8.5-10.1); Chloride 103 mmol/L (98-107); Estimated GFR 50.23 (mL/min/1.73m2); Glucose 95 mg/dL (74-106); Potassium 4.2 mmol/L (3.5-5.1); Sodium 135 mmol/L (136-145); Total Protein 7.9 g/dL (6.4-8.2)
[2024-03-08 10:28] LABS: Bilirubin Negative (Negative); Blood Trace-intact (Negative); Clarity Clear (Clear); Glucose Negative (Negative); Ketones Negative (Negative); Leukocyte Esterase Negative (Negative); Nitrite Negative (Negative); Urobilinogen 0.2 mg/dL (Up to 0.2)
[2024-03-08 10:42] LABS: Bacteria Few HPF (Negative); C & S Indicated? No; Casts Negative LPF (Negative); Crystals Negative HPF (Negative); Epithelial Cells Moderate HPF (Negative); Mucus Negative (Negative); RBC 0-2 HPF (0-2); WBC Negative HPF (0-5)
[2024-03-08] MEDS: AMPICILLIN/SULBACTAM 3 GM in Normal Saline 100 ML IVPB (11:27)
[2024-03-08 12:06] VITALS: BP 152/73; PULSE 79; RESP 16; O2SAT 98
== END 2024-03-08 12:07 | disposition home or self-care (01) ==
PROVIDERS: Emergency Provider Student in an Organized Health Care Education/Training Program; PCP Student in an Organized Health Care Education/Training Program
DX: R10.32 Left lower quadrant pain (principal); R10.31 Right lower quadrant pain; K57.32 Diverticulitis of large intestine without perforation or abscess without bleeding
CPT/HCPCS: 36415; 80053; 96361; 96365; 96367; 96375; 99284; 74176; 81003; 81015; 83605; 85025; 99283; J0131; J0295; J1885

== ENCOUNTER → 2024-03-26 03:03 | Outpatient (CLI) | payer MEDICARE, SELFPAY ==
--- NOTE | 2024-03-26 06:15 | DI.MAMMO_ITS ---
Exam(s) MAMMO SCREENING EXAM: MAMMO SCREENING CLINICAL HISTORY: screening,z12.39 TECHNIQUE: Bilateral full field digital CC and MLO mammographic images were obtained with 3D tomosyn thesis and utilizing computer aided detection (CAD). COMPARISON: Available for comparison. FINDINGS: Masses/Architectural Distortion: None seen. Microcalcifications: No suspicious pleomorphic-type are seen. Skin Thickening/Nipple Retraction: None. IMPRESSION: 1. No significant interval change with no specific features of malignancy noted. 2. Unless there is more urgent need, screening mammography is recommended, as per [employer] guidelines. BI-RADS Category 1 - Negative Breast Density - Category B - Scattered areas of fibroglandular density Breast density category C or D implies that the patient has dense breast tissue. Dense breast tissue is very common and is not abnormal but dense breast tissue can make it harder to find cancer on a ma mmogram. Also, dense breast tissue may increase their breast cancer risk. This information about the result of the mammogram report was provided to the patient to raise their awareness. Use this report when you speak with the patient about their risks for breast cancer, which includes their family hist ory. At that time, you may recommend for more screening tests (Ultrasound or MRI) as they might be us eful based on their risk. A negative radiographic report should not delay biopsy if a dominant or clinically suspicious mass is present. Up to ten percent of cancers are not identified on mammography. A negative report may reinforce clinical impression. Adenosis and dense breasts may obscure an underlying neoplasm. False positive reports average 6 to 10%. Patient will receive a letter notifying them of these results.
--- NOTE | 2024-03-26 08:30 | DI.CTLCSR_ITS ---
Exam(s) CT CHEST LUNG CANCER SCREEN EXAM: CT CHEST LUNG CANCER SCREEN CLINICAL HISTORY: Screening for lung cancer,former smoker, z87.891,annual, f/ui 03/21/23 TECHNIQUE: Imaging Protocol: Axial computed tomography images with coronal and sagittal reformatted images were created and reviewed COMPARISON: CT CT CHEST LUNG CANCER SCREEN from 03/21/2023 FINDINGS: Tracheobronchial tree: Patent where visualized. Pulmonary parenchyma: No consolidation or dominant measurable mass. No architectural distortion. Lung Nodules: There are few stable tiny 1-2 mm nodules in the medial aspect of the left lung apex. N o new pulmonary nodules are present. Mediastinum and Rosi: No dominant adenopathy or fluid collection. The esophagus is unremarkable. Thyroid gland: Unremarkable. Lymph nodes: Unremarkable. Pleura: No effusion or pneumothorax. Heart: The heart is not dilated. Coronary artery calcifications are present. No pericardial effusion . Aorta: Thoracic aorta non-dilated.Atherosclerotic calcification is present. Upper abdomen: Status post cholecystectomy. Soft Tissues: Unremarkable. Bones: Within normal limits. IMPRESSION: Stable pulmonary nodules. Lung RADS Cat 2 - Benign Appearance / Behavior: Nodules with a very low likelihood of becoming a clin ically active cancer due to size or lack of growth Lung-RADS 1.0 CATEGORIES: Category 0 - Prior chest CT exam(s) being located for comparison. Category 1 - Annual screening in 12 months. No nodules or definitely benign nodules. Category 2 - Annual screening in 12 months. Benign appearance. Nodules with low likelihood of becomin g active cancer. Category 3 - 6-month follow-up. Probably benign. Short-term follow-up suggested. Nodules with low lik elihood of becoming active cancer. Category 4A - 3-month follow-up and CT/PET if >8 mm in size. Suspicious finding. Findings which requi re additional testing. Category 4B - Findings which require additional testing and tissue sampling. Suspicious finding. Category 4X - Category 3 or 4 nodules with additional features or imaging findings that increases the suspicion of malignancy. Modifier S- Potentially clinically significant finding. (Non lung cancer) RADIATION DOSE DELIVERED: 76.91mGy.cm Total DLP 76.91mGy.cmTotal DLP DATA REPOSITORY: All CT scans at this facility are submitted to the National Radiology Data Registry (NRDR) Dose Index Registry (DIR) with the [employer] (ACR). RADIATION OPTIMIZATION: All CT scans at this facility use at least one of these dose optimization te chniques: automated exposure control; mA and/or kV adjustment per patient size (includes targeted exa ms where dose is matched to clinical indication); or iterative reconstruction.
== END ==
PROVIDERS: PCP Student in an Organized Health Care Education/Training Program; Visit Provider Student in an Organized Health Care Education/Training Program
DX: Z87.891 Personal history of nicotine dependence (principal); Z12.31 Encounter for screening mammogram for malignant neoplasm of breast; Z12.2 Encounter for screening for malignant neoplasm of respiratory organs; R91.1 Solitary pulmonary nodule
CPT/HCPCS: 71271; 77063; 77067

== ENCOUNTER 2024-04-12 09:38 | Outpatient (CLI) | payer MEDICARE, SELFPAY ==
[2024-04-12 09:01] LABS: Abs Immature Grans 0.04 10^3/uL (0.0-0.06); Absolute Basophil Count 0.04 10^3/uL (0.0-0.2); Absolute Eosinophil Count 0.05 10^3/uL (0.0-0.7); Absolute Lymphocyte Count 2.47 10^3/uL (1.2-3.4); Absolute Monocyte Count 0.51 10^3/uL (0.1-0.8); Absolute Neutrophil Count 5.05 10^3/uL (1.2-6.7); Basophils % 0.5 %; Eosinophils % 0.6 %; HCT 43.3 % (36.0-46.0); HGB 14.3 g/dL (11.2-15.7); Immature Grans % 0.5 %; Lymphocytes % 30.3 %; MCH 28.9 pg (27.0-33.0); MCV 88 fL (80-95); MPV 10.3 fL (8.0-11.0); Monocytes % 6.3 %; Neutrophils % 61.8 %; Platelet Count 275 10^3/uL (130-400); RBC 4.94 10^6/uL (3.93-5.22); RDW 14.7 % (11.7-14.6); RDW-SD 47.5 fL; WBC 8.16 10^3/uL (4.4-10.8)
[2024-04-12 09:31] LABS: C-Reactive Protein 4.87 mg/dL (<or=0.5)
[2024-04-15 22:59] LABS: Lab Add On Test DONE
[2024-04-15 23:11] LABS: BUN 18 mg/dL (7-18); CREATININE 1.3 mg/dL (0.55-1.02); Calcium 9.5 mg/dL (8.5-10.1); Chloride 102 mmol/L (98-107); Estimated GFR 45.63 (mL/min/1.73m2); Glucose 124 mg/dL (74-106); Magnesium 1.7 mg/dL (1.8-2.4); Potassium 4.5 mmol/L (3.5-5.1); Sodium 139 mmol/L (136-145)
== END 2024-04-12 09:39 | disposition home or self-care (01) ==
LOC: LBO 09:38
PROVIDERS: PCP Student in an Organized Health Care Education/Training Program; Visit Provider Student in an Organized Health Care Education/Training Program
DX: L02.91 Cutaneous abscess, unspecified (principal); K57.92 Diverticulitis of intestine, part unspecified, without perforation or abscess without bleeding; K59.00 Constipation, unspecified; Z91.89 Other specified personal risk factors, not elsewhere classified; Z87.19 Personal history of other diseases of the digestive system
CPT/HCPCS: 36415; 80048; 83735; 85025; 86140

== ENCOUNTER → 2024-04-12 09:40 | Outpatient (CLI) | payer MEDICARE, SELFPAY ==
--- NOTE | 2024-04-12 09:20 | DI.RAD_ITS ---
Exam(s) XR ABDOMEN FLAT UPRIGHT EXAM: 2D digital imaging was performed. CLINICAL HISTORY: obstipation vs diverticulitis (w/abscess?), K59.00, K57.32. COMPARISON: CT CT ABDOMEN PELVIS WO from 03/08/2024 TECHNIQUE: Supine and upright views of the abdomen was performed. Three images were obtained. FINDINGS: LUNG BASES: Clear. BOWEL GAS PATTERN: Nondistended. FREE AIR: None. CALCIFICATIONS: No radiopaque calcifications. OSSEOUS STRUCTURES: Normal for age. OTHER FINDINGS: There are surgical clips in the right upper quadrant of the abdomen likely reflecting prior cholecystectomy. IMPRESSION: No evidence of an acute abdomen. DATA REPOSITORY: RADIATION DOSE DELIVERED:
== END ==
PROVIDERS: PCP Student in an Organized Health Care Education/Training Program; Visit Provider Student in an Organized Health Care Education/Training Program
DX: K59.00 Constipation, unspecified (principal); K57.32 Diverticulitis of large intestine without perforation or abscess without bleeding
CPT/HCPCS: 74019

== ENCOUNTER → 2024-05-20 02:05 | Outpatient (CLI) | payer MEDICARE, SELFPAY ==
[2024-05-20] MEDS: Omnipaque 350 MG/ML 50 ML BTL PO (13:29)
[2024-05-20] MEDS: Breeza Beverage 473 ML BTL PO ×2 (13:30→13:31)
[2024-05-20 13:43] LABS: Anion Gap 8.6 mmol/L (3-11); BUN 17 mg/dL (7-18); CO2 26.4 mmol/L (21.0-32.0); CREATININE 1.1 mg/dL (0.55-1.02); Calcium 10.1 mg/dL (8.5-10.1); Chloride 104 mmol/L (98-107); Estimated GFR 55.76 (mL/min/1.73m2); Glucose 86 mg/dL (74-106); Potassium 4.7 mmol/L (3.5-5.1); Sodium 139 mmol/L (136-145)
[2024-05-20] MEDS: Omnipaque 350 MG/ML 100 ML BTL IJ (14:40)
--- NOTE | 2024-05-20 14:45 | DI.CT_ITS ---
Exam(s) CT ABDOMEN PELVIS W EXAM: CT ABDOMEN PELVIS W CLINICAL HISTORY: repeat diverticulitis with abscess,constipation,k59.00,k57.32. TECHNIQUE: Imaging Protocol: Axial computed tomography images with coronal and sagittal reformatted images were created and reviewed CONTRAST MATERIAL: Intravenous: Omnipaque 350 Contrast volume:100 ml Oral: yes / COMPARISON: CT CT ABDOMEN PELVIS WO from 03/08/2024 FINDINGS: ABDOMEN and PELVIS: Lung Bases: No acute findings. Tiny hiatal hernia. Liver: Mildly enlarged. Mild hepatic steatosis. No suspicious mass. Gallbladder and biliary tract: Status post cholecystectomy. No biliary dilation. Pancreas: Normal density. No abnormal calcifications or inflammatory process. No evidence of mass. Spleen: Normal. Kidneys: Normal size, contour and axis. No radiodense stones. No obstructive uropathy. Stable simpl e cyst lower pole right kidney. No follow-up recommended. No suspicious masses seen. Adrenal glands: No masses seen. Vasculature: Abdominal aorta non-dilated. Atherosclerotic changes. Soft tissues: Unremarkable. Bladder: No gross wall thickening. No calculi.No focal mass. Bowel: Diverticulum descending duodenum. No small-bowel obstruction. Diverticulosis descending and sigmoid colon. No evidence of diverticulitis. Appendix normal. Peritoneal cavity: No ascites. No focal collection. No mesenteric inflammatory response. Bones: Unremarkable for age. Reproductive organs: Status post hysterectomy. Lymph nodes: No pathologically enlarged lymph nodes. IMPRESSION:: Diverticulosis of the descending and sigmoid colon.. No evidence of diverticulitis. RADIATION DOSE DELIVERED: Total DLP DATA REPOSITORY: All CT scans at this facility are submitted to the National Radiology Data Registry (NRDR) Dose Index Registry (DIR) with the [employer] ([employer]). RADIATION OPTIMIZATION: All CT scans at this facility use at least one of these dose optimization te chniques: automated exposure control; mA and/or kV adjustment per patient size (includes targeted exa ms where dose is matched to clinical indication); or iterative reconstruction.
== END ==
PROVIDERS: PCP Student in an Organized Health Care Education/Training Program; Visit Provider Student in an Organized Health Care Education/Training Program
DX: K59.00 Constipation, unspecified; K57.32 Diverticulitis of large intestine without perforation or abscess without bleeding; K57.30 Diverticulosis of large intestine without perforation or abscess without bleeding
CPT/HCPCS: 80048; 74177; J3490; Q9967

== ENCOUNTER 2025-01-03 00:09 | Outpatient (CLI) | payer MEDICARE, SELFPAY ==
--- NOTE | 2025-01-03 07:15 | DI.US_ITS ---
Exam(s) US SOFT TISSUE EXTREMITY EXAM: US SOFT TISSUE EXTREMITY CLINICAL HISTORY: painful soft tissue mass left achiles 2 mos,achilles tendon pain,m79.89,. TECHNIQUE: Ultrasound was performed using standard protocol. COMPARISON: No exams were available for comparison FINDINGS: Sonographic assessment utilizing grayscale and color Doppler imaging was performed and targeted to th e area of clinical concern. Both Achilles tendons were scanned There is thickening, mild edema as well as some hyperemia within the Achilles tendon. The Achilles t endon measures 6 millimeters in thickness by 17 millimeters in with compared to 5 x 12 millimeters on the right. There is no evidence of discrete tendon tear. The findings are consistent with tendinos is. There is no soft tissue mass or drainable fluid collection. IMPRESSION: Thickening, edema and mild hyperemia of the left Achilles tendon, consistent with tendinosis. No estefani dence of a tear. No evidence of mass. DATA REPOSITORY:
== END 2025-01-03 00:29 ==
LOC: DI 00:09
PROVIDERS: PCP Family Medicine; Visit Provider Nurse Practitioner
DX: M76.62 Achilles tendinitis, left leg
CPT/HCPCS: 76881

== ENCOUNTER → 2025-02-04 08:52 | Outpatient (BNVA) | payer MEDICARE, SELFPAY | PROVIDERS: PCP Family Medicine; Referring Provider Family Medicine; Visit Provider Student in an Organized Health Care Education/Training Program | DX: M76.62 Achilles tendinitis, left leg (principal) | CPT/HCPCS: 99214 ==

== ENCOUNTER 2025-03-11 01:33 | Outpatient (CLI) | payer MEDICARE, SELFPAY ==
--- NOTE | 2025-03-11 07:30 | DI.DEXA_ITS ---
Exam(s) XR DEXA BONE DENSITY W/WO ELOISE EXAM: XR DEXA BONE DENSITY W/WO ELOISE CLINICAL HISTORY: Routine screening FOR OSTEOPOROSIS IN POSTMENOPAUSAL STATE,Z78.0 TECHNIQUE: [employer] C densitometer analysis of left hip, lumbar spine and left forearm. Lat eral survey image of the thoracic and lumbar spine. COMPARISON: No exams were available for comparison FINDINGS: Lateral view of the thoracic and lumbar spine shows no evidence of compression fractures. Bone mineral density measurements of the lumbar spine correspond to a total T-score of 0.6, in the n ormal range. Bone mineral density measurements of the left hip correspond to a total T-score of 0.7. The femoral neck T-score is 0.3, in the normal range. Theleft forearm bone mineral density measurements correspond to a T-score of the distal 3rd of -0.4, in the normal range. IMPRESSION: Normal bone mineral density.
== END 2025-03-11 01:53 ==
LOC: DI 01:34
PROVIDERS: PCP Family Medicine; Visit Provider Family Medicine
DX: Z78.0 Asymptomatic menopausal state (principal); Z13.820 Encounter for screening for osteoporosis
CPT/HCPCS: 77080

== ENCOUNTER 2025-08-22 13:30 | Outpatient (CLI) | payer MEDICARE, SELFPAY ==
[2025-08-22 14:31] LABS: Anion Gap 9.6 mmol/L (3-11); BUN 17 mg/dL (7-18); CO2 29.4 mmol/L (21.0-32.0); Calcium 9.3 mg/dL (8.5-10.1); Chloride 104 mmol/L (98-107); Glucose 66 mg/dL (74-106); Potassium 4.2 mmol/L (3.5-5.1); Sodium 143 mmol/L (136-145)
== END 2025-08-22 13:31 | disposition home or self-care (01) ==
LOC: LBO 13:30
PROVIDERS: PCP Family Medicine; Visit Provider Family Medicine
DX: N18.9 Chronic kidney disease, unspecified (principal)
CPT/HCPCS: 36415; 80048